=== PATIENT | male | born 1985 | race African-American/Black ===

== ENCOUNTER 2017-02-19 08:34 | Emergency (ER) | payer SELFPAY ==
[~2017-02-19] VITALS: Ht 185.4 cm; Wt 76.8 kg
[~2017-02-19 08:34] MED LIST: CLIN1CAP5 PO; NAPR500 PO
[2017-02-19 08:36] VITALS: BP 134/85; PULSE 69; RESP 20; TEMP 97.7; O2SAT 98
--- NOTE | 2017-02-19 08:53 | PD ---
HPI Chief Complaint: Cold / Flu Symptoms Time Seen by Provider: 08:52 Travel History International Travel<30 days: No Contact w/Intl Traveler<30days: No Traveled to known affect area: No History of Present Illness HPI 31-year-old male presents to the emergency Department with complaint of sore throat 5 days. Reports occasional cough. Main complaint sore throat. Denies fever. Denies lump in throat, difficulty swallowing, and usual drooling. Reports painful swallowing. Reports change in voice. Denies ear pain. Denies shortness of breath, chest tightness, wheezing. Denies headache, abdominal pain , vomiting. Says he's been sleeping in his car and his very tired. Has not taken any medications or tried any treatments to alleviate his symptoms. Symptoms are mild in severity. No one else with similar symptoms. No known allergies. No other modifying factors or associated signs and symptoms. PFSH Past Medical History Diminished Hearing: No Social History Alcohol Use: No Tobacco Use: Yes (3 CIGARETTES/DAY) Substance Use: Yes (MARIJUANA.) Allergies-Medications (Allergen,Severity, Reaction): Coded Allergies: No Known Allergies (Verified , 02/19/17) Reported Meds & Prescriptions Reported Meds & Active Scripts Active Review of Systems Except as stated in HPI: all other systems reviewed are Neg Physical Exam Narrative GENERAL: Well-nourished, well-developed black male patient, in no acute distress SKIN: Warm and dry. No rash. HEAD: Atraumatic. Normocephalic. EYES: Pupils equal and round at 3 mm with brisk reaction. No scleral icterus. No injection or drainage. PERRLA. ENT: Mucosa pink and dry. Pharynx with 2+ tonsils; with erythema; without exudate. No Uvular edema. No uvular, palatal, or tonsillar deviation. Airway patent. Voice is hoarse. EARS: Bilateral pinnae and external canals appear within normal limits. Bilateral tympanic membranes without erythema, dullness or perforation.. NECK: Trachea midline. No Anterior cervical lymphadenopathy; with tenderness. CARDIOVASCULAR: Regular rate and rhythm. No murmur appreciated. RESPIRATORY: No accessory muscle use. Clear to auscultation. Breath sounds equal bilaterally. GASTROINTESTINAL: Flat. MUSCULOSKELETAL: No obvious deformities. No clubbing. No cyanosis. No edema. NEUROLOGICAL: Awake and alert. Oriented 3. No obvious cranial nerve deficits. Motor grossly within normal limits. Normal speech. Moves all extremities. PSYCHIATRIC: Appropriate mood and affect; insight and judgment normal. Data Data Last Documented VS Vital Signs Date Time Temp Pulse Resp B/P (MAP) Pulse Ox O2 Delivery O2 Flow Rate FiO2 02/19/17 08:36 97.7 69 20 134/85 (101) 98 Room Air Orders Orders Group A Rapid Strep Screen (02/19/17 08:52) Ibuprofen (Motrin) (02/19/17 09:00) Strep Culture (Group A) (02/19/17 08:50) MDM Medical Decision Making Medical Screen Exam Complete: Yes Emergency Medical Condition: Yes Medical Record Reviewed: Yes Differential Diagnosis Strep pharyngitis, viral pharyngitis, tonsillitis, laryngitis, less likely peritonsilar abscess Narrative Course 31-year-old male with sore throat 5 days. Denies fever, vomiting. Denies lump in throat, difficulty swallowing, initial drooling. Patient is afebrile and nontoxic-appearing. Rapid strep and ibuprofen ordered. 1006: Rapid strep negative. Ibuprofen prescribed for home. Instructed patient to follow up with primary care provider. Patient verbalizes understanding and agreement with treatment plan. Patient is medically cleared and stable for discharge. Discussed reasons to return to the emergency department. Patient agrees with treatment plan. The patients vital signs are stable and the patient is stable for outpatient follow-up and treatment. Patient discharged home, stable and in no acute distress. Diagnosis Primary Impression: Sore throat (viral) Referrals: Primary Care Physician Patient Instructions: General Instructions, Pharyngitis (ED) Departure Forms: Tests/Procedures, Work Release Enter return to work date: Feb 20, 2017 Additional Instructions: Throw away and change your toothbrush 24 hours after starting antibiotics Get plenty of sleep/rest Rest your voice Drink plenty of fluids to prevent dehydration Use warm saltwater gargles to soothe throat pain Use an air humidifier/turn off ceiling fans Use throat lozenges as needed for sore throat Use ibuprofen or acetaminophen as needed to relieve pain and fever Follow-up with your primary care provider within 2-4 days Return immediately to the emergency department with worsening of symptoms Med/Other Pt SpecificInfo: Prescription(s) given Scripts Ibuprofen (Ibuprofen) 800 Mg Tab 800 MG PO Q6HR Y for PAIN, #30 TAB 0 Refills Prov: Janna Claudio 02/19/17 Disposition: 01 DISCHARGE HOME Condition: Stable Janna Claudio Feb 19, 2017 08:53
[2017-02-19] MEDS ORDERED: IBUPROFEN 800 MG TAB PO ONE (09:00)
[2017-02-19] MEDS ORDERED: IBUP800T23 PO (10:07)
== END 2017-02-19 10:30 | disposition home or self-care (01) ==
LOC: NEPD 08:34
DX: J02.9 Acute pharyngitis, unspecified (principal); B95.0 Streptococcus, group A, as the cause of diseases classified elsewhere; B34.9 Viral infection, unspecified; Z72.0 Tobacco use
CPT/HCPCS: 87081; 87880; 99283